=== PATIENT | male | born 1985 | race African-American/Black ===

== ENCOUNTER 2022-08-25 02:48 | Emergency (ER) | payer MEDICAID, OTHER ==
[2022-08-25] MEDS ORDERED: ACETAMINOPHEN 325MG TABLET PO ONE (05:30)
[2022-08-25] MEDS ORDERED: GABAPENTIN 300MG CAPSULE PO ONE (05:30)
[2022-08-25 06:17] LABS: CHLORIDE 100 mEq/L (98-107)
[2022-08-25] MEDS ORDERED: GABA-529 MT (06:30)
[2022-08-25] MEDS ORDERED: ACET-2708 MT (06:30)
[2022-08-25 06:31] LABS: BASOPHILS % 0.4 % (0.0-2.0); HEMOGLOBIN. 13.3 g/dL (14.0-18.0); LYMPHOCYTES % 50.5 % (20.0-50.0); MEAN CORPUSCULAR HEMOGLOBIN 28.6 pg (28.0-32.0); MEAN PLATELET VOLUME 7.6 fl (7.4-10.4); MONOCYTES % 12.2 % (2.0-8.0); NEUTROPHILS % 34.9 % (40.0-76.0); PLATELET 326 x1000/uL (130-400); RED BLOOD CELL COUNT 4.65 mill/uL (4.7-6.1); RED CELL DISTRIBUTION WIDTH 13.3 % (11.6-14.6)
[2022-08-25] MEDS ORDERED: CALC-1042 MT (06:39)
== END 2022-08-25 07:09 | disposition home or self-care (01) ==
LOC: ER 02:48
DX: M79.652 Pain in left thigh (principal); M79.651 Pain in right thigh; Z88.2 Allergy status to sulfonamides; Z00.00 Encounter for general adult medical examination without abnormal findings
CPT/HCPCS: 36415; 80048; 85025; 99283